=== PATIENT | male | born 1950 | race Caucasian/White ===

== ENCOUNTER 2021-10-27 02:55 | Emergency (ER) | payer MEDICARE, OTHER ==
[2021-10-27 03:05] VITALS: BP 184/91
--- NOTE | 2021-10-27 03:09 | ED Physician Documentation ---
PD HPI HEENT - Stated complaint Stated Complaint: RT MOUTH PX/RT EAR CANT HEAR - Chief complaint Chief Complaint: Heent - History obtained from History obtained from: Patient - History of Present Illness Timing - onset: How many hours ago (3) Timing - details: Abrupt onset Pain level now: 1 Location: Right ear Improves: Nothing Worsens: Other (no exacerbating factors) Associated symptoms: No: Fever Recently seen: Not recently seen - Additional information Additional information: c/o sudden decrease in hearing right ear approximately 3 hours [employer]. He felt a fullness in the right ear canal during the day so this evening he used an ear wax removal system. He did not get any noticeable cerumen output and he then used a cotton swab in the ear canal and had sudden decreased hearing. Minimal discomfort right ear Review of Systems Ears: reports: Loss of hearing, Ear pain. denies: Drainage/discharge, Tinnitus/ringing PD PAST MEDICAL HISTORY - Past Medical History Past Medical History: Yes : Benign prostate hypertrophy - Past Surgical History Past Surgical History: No - Present Medications Home Medications: Ambulatory Orders Medication Instructions Recorded Confirmed Tamsulosin [Flomax] 0.4 mg PO DAILY 10/27/21 10/27/21 - Allergies Allergies/Adverse Reactions: Allergies Allergy/AdvReac Type Severity Reaction Status Date / Time No Known Drug Allergies Allergy Verified 10/27/21 03:05 - Social History Does the pt smoke?: No Smoking Status: Never smoker Does the pt drink ETOH?: No Does the pt have substance abuse?: No - Immunizations Immunizations are current?: No Immunizations: Other immun not current PD ED PE NORMAL - Vitals Vital signs reviewed: Yes - General General: Alert and oriented X 3, No acute distress, Well developed/nourished PD ED PE EXPANDED - HEENT HEENT: Other (right TM obscured by cerumen; left external auditory canal and TM WNL) Results - Vitals Vitals: Vital Signs - 24 hr 10/27/21 03:02 Temperature 36.5 C Heart Rate 83 Respiratory 18 Rate Blood Pressure 184/91 H O2 Saturation 97 Oxygen O2 Source Room air PD MEDICAL DECISION MAKING - ED course Complexity details: considered differential, d/w patient ED course: right external auditory canal flushed with warm sterile saline (obtained from blanket/saline warmer, as the sinks in the ED are not running hot water nor warm enough so as to prevent possible inducing of vertigo with flushing of ear canal). There was return of small amount of cerumen and on reexam, the ear canal is without any cerumen and TM is unobscured. The TM is intact without erythema nor loss of landmarks. The superior/posterior aspect has some bulging that appears atypical for serous otitis; appears to have small vesicles. This does not appear to be a concern/emergent finding, but I advised patient to follow up with his primary care provider within 1 week for reevaluation of the right TM to see if this lesion persists Departure - Departure Disposition: 01 Home, Self Care Clinical Impression: Impacted cerumen of right ear, Serous otitis media Condition: Good Instructions: ED Otitis Media Serous Adult, ED Earwax Removal Comments: I was able to flush out the small amount of ear wax that was in your right ear canal. As we discussed, even though it was a small amount, it likely was pushing up against the ear drum and this would account for the decreased hearing and the return to normal hearing once I was able to flush out the ear wax. You have a small amount of swelling of the upper portion of your ear drum; this is likely an incidental finding but I recommend that you follow up with your primary care provider within 7-10 days for recheck of the eardrum to see if the irregular appearance persists. Discharge Date/Time: 10/27/21 03:52
== END 2021-10-27 03:52 | disposition home or self-care (01) ==
LOC: ED 02:55
DX: H61.21 Impacted cerumen, right ear (principal); H65.91 Unspecified nonsuppurative otitis media, right ear
CPT/HCPCS: 69209; 99281; 99282